=== PATIENT | female | born 1970 | race Hispanic/Latino ===

== ENCOUNTER → 2020-02-15 | Outpatient (CLI) | payer BC ==
[~2020-02-15] MED LIST: HONEY 1 APPL/ML TUBE TP ONE; LIDOCAINE HCL 4% LTA SOL 4 ML VIAL ONE
== END | disposition home or self-care (01) ==
LOC: WHH 14:30
PROVIDERS: ATTEND Family Medicine
DX: L97.812 Non-pressure chronic ulcer of other part of right lower leg with fat layer exposed (principal); S81.811A Laceration without foreign body, right lower leg, initial encounter; E78.5 Hyperlipidemia, unspecified; I10 Essential (primary) hypertension; E66.9 Obesity, unspecified; Z68.43 Body mass index [BMI] 50.0-59.9, adult; X58.XXXA Exposure to other specified factors, initial encounter; Y93.89 Activity, other specified; Y92.89 Other specified places as the place of occurrence of the external cause; Y99.8 Other external cause status
CPT/HCPCS: 11042; 36415; 84134; 86140; 87070; 87077; 87186; 99205; A6213

== ENCOUNTER → 2020-02-17 | Outpatient (CLI) | payer BC | END | disposition home or self-care (01) | LOC: WHH 14:15 | PROVIDERS: ATTEND Family Medicine | DX: L97.812 Non-pressure chronic ulcer of other part of right lower leg with fat layer exposed (principal); S81.811D Laceration without foreign body, right lower leg, subsequent encounter; E78.5 Hyperlipidemia, unspecified; I10 Essential (primary) hypertension; E66.9 Obesity, unspecified; Z68.43 Body mass index [BMI] 50.0-59.9, adult; X58.XXXD Exposure to other specified factors, subsequent encounter | CPT/HCPCS: 93922; 99211; A6213 ==

== ENCOUNTER → 2020-02-22 | Outpatient (CLI) | payer BC | END | disposition home or self-care (01) | LOC: WHH 13:00 | PROVIDERS: ATTEND Family Medicine | DX: L97.812 Non-pressure chronic ulcer of other part of right lower leg with fat layer exposed (principal); S81.811D Laceration without foreign body, right lower leg, subsequent encounter; S81.801D Unspecified open wound, right lower leg, subsequent encounter; E78.5 Hyperlipidemia, unspecified; I10 Essential (primary) hypertension; I87.2 Venous insufficiency (chronic) (peripheral); E66.9 Obesity, unspecified; Z68.43 Body mass index [BMI] 50.0-59.9, adult; X58.XXXD Exposure to other specified factors, subsequent encounter | CPT/HCPCS: 11042; A6213 ==

== ENCOUNTER → 2020-02-29 | Outpatient (CLI) | payer BC | END | disposition home or self-care (01) | LOC: WHH 13:00 | PROVIDERS: ATTEND Family Medicine | DX: L97.812 Non-pressure chronic ulcer of other part of right lower leg with fat layer exposed (principal); S81.811D Laceration without foreign body, right lower leg, subsequent encounter; S81.801D Unspecified open wound, right lower leg, subsequent encounter; E78.5 Hyperlipidemia, unspecified; I10 Essential (primary) hypertension; I87.2 Venous insufficiency (chronic) (peripheral); E66.9 Obesity, unspecified; Z68.43 Body mass index [BMI] 50.0-59.9, adult; X58.XXXD Exposure to other specified factors, subsequent encounter | CPT/HCPCS: 11042; A6213; A6452 ==

== ENCOUNTER → 2020-03-28 | Outpatient (CLI) | payer BC ==
[~2020-03-28] MED LIST changes: +LIDOCAINE HCL 2% JELLY 5 ML ONE; -LIDOCAINE HCL 4% LTA SOL 4 ML VIAL ONE
== END | disposition home or self-care (01) ==
LOC: WHH 14:40
PROVIDERS: ATTEND Family Medicine
DX: L97.812 Non-pressure chronic ulcer of other part of right lower leg with fat layer exposed (principal); S81.811D Laceration without foreign body, right lower leg, subsequent encounter; S81.801D Unspecified open wound, right lower leg, subsequent encounter; E78.5 Hyperlipidemia, unspecified; I10 Essential (primary) hypertension; I87.2 Venous insufficiency (chronic) (peripheral); E66.9 Obesity, unspecified; Z68.43 Body mass index [BMI] 50.0-59.9, adult; X58.XXXD Exposure to other specified factors, subsequent encounter
CPT/HCPCS: 11042; A6213; A6452